=== PATIENT | male | born 1990 | race Caucasian/White ===

== ENCOUNTER 2023-08-30 06:50 | Emergency (ER) | payer MEDICAID ==
[~2023-08-30] VITALS: Ht 170.2 cm; Wt 81.0 kg
[2023-08-30 07:04] VITALS: TEMP 98
[2023-08-30] MEDS: ONDANSETRON HCL 4 MG/2 ML VIAL IM ONE (07:59)
[2023-08-30] MEDS: IBUPROFEN 600 MG TABLET PO ONE (07:59)
[2023-08-30] MEDS: HYDROmorphone HCL 2 MG/ML SYRINGE IM ONE (07:59)
[2023-08-30] MEDS ORDERED: HYDR-4723 PO (09:02)
[2023-08-30] MEDS ORDERED: IBUP-1554 PO (09:02)
[2023-08-30] MEDS ORDERED: DOCU-412 PO (09:02)
[2023-08-30 09:19] VITALS: BP 128/70; PULSE 92; RESP 16
== END 2023-08-30 09:22 | disposition home or self-care (01) ==
LOC: EMS 06:55
DX: S52.122A Displaced fracture of head of left radius, initial encounter for closed fracture (principal); W19.XXXA Unspecified fall, initial encounter; Y93.89 Activity, other specified; Y92.89 Other specified places as the place of occurrence of the external cause; Y99.8 Other external cause status
CPT/HCPCS: 99284; 73080; 96372; J1170; J2405